=== PATIENT | female | born 1995 | race Hispanic/Latino ===

== ENCOUNTER 2016-12-20 10:22 | Emergency (ER) | payer SELFPAY ==
[2016-12-20 10:40] VITALS: BP 105/72; PULSE 112; RESP 18; TEMP 98.7; O2SAT 100
[2016-12-20] MEDS ORDERED: Sodium Chloride 0.9% 1,000 ML IV ONE (11:30)
[2016-12-20 11:35] LABS: RBC URINE 27 /hpf (0-3); URINE BACTERIA RARE (<OCC); URINE BILIRUBIN NEGATIVE (NEGATIVE); URINE BLOOD 2+ (NEGATIVE); URINE COLOR Yellow (YELLOW); URINE GLUCOSE (UA) NORMAL (Normal); URINE KETONE NEGATIVE (NEGATIVE); URINE LEUKOCYTE ESTERASE NEG Leu/uL (Negative); URINE PROTEIN NEGATIVE (NEGATIVE); URINE UROBILINOGEN NORMAL mg/dL (0.2-1.0); WBC URINE 2 /hpf (0-5)
[2016-12-20] MEDS ORDERED: Sodium Chloride 0.9% 1,000 ML ONE (11:54)
[2016-12-20 11:56] LABS: BASO % 0.2 % (0.0-2.0); EOS % 0.1 % (0.0-4.0); LYMPH # 0.8 K/uL (1.0-4.3); LYMPH % 7.3 % (20.0-40.0); MEAN CORPUSCULAR HEMOGLOBIN 29.3 pg (27.0-31.0); MEAN CORPUSCULAR HGB CONC 33.6 g/dL (33.0-37.0); MEAN PLATELET VOLUME 8.1 fL (7.2-11.7); MONO # 0.7 K/uL (0.0-0.8); MONO % 6.5 % (0.0-10.0); PLATELET COUNT 225 K/uL (130-400); RED CELL DISTRIBUTION WIDTH 13.2 % (11.5-14.5); WHITE BLOOD COUNT 10.6 K/uL (4.8-10.8)
[2016-12-20 12:11] LABS: NEUTROPHIL 88 % (50-75); TOTAL CELLS COUNTED 100
[2016-12-20 12:18] LABS: CHLORIDE 99 mmol/L (98-107); SODIUM 139 mmol/L (132-148)
[2016-12-20 12:20] LABS: GFR AFRICAN-AMERICAN > 60
[2016-12-20 12:21] LABS: ALB/GLOB RATIO 1.1 (1.0-2.1); ALKALINE PHOSPHATASE 66 U/L (38-126); ALT/SGPT 34 U/L (9-52); AST/SGOT 20 U/L (14-36); BILIRUBIN,TOTAL 0.8 mg/dL (0.2-1.3); BLOOD UREA NITROGEN 12 mg/dL (7-17); CALCIUM 8.6 mg/dl (8.6-10.4); CARBON DIOXIDE 23 mmol/L (22-30); GLUCOSE,RANDOM 100 mg/dL (65-105); TOTAL PROTEIN 7.9 g/dL (6.3-8.3)
--- NOTE | 2016-12-20 12:46 | C.PDOC ---
History Of Present Illness Patient is a 21 year old female presents to ED for evaluation of diffuse abdominal pain associated with nausea and diarrhea since early this morning. Patient states she feels "full", and feels as if she is dehydrated. States that she suffers from constipation, notes having bowel movement once a week. However , patient states she has diarrhea today. Otherwise, denies any urinary symptoms , fever, chills, vomiting, back pain, or any other associated symptoms at this time. LMP: 11/22/16. Time Seen by Provider: 12/20/16 11:00 Chief Complaint (Nursing): Abdominal Pain History Per: Patient History/Exam Limitations: no limitations Onset/Duration Of Symptoms: Hrs, Sudden Onset Current Symptoms Are (Timing): Still Present Severity: Moderate Location Of Pain/Discomfort: Diffuse Radiation Of Pain To:: None Associated Symptoms: Nausea, Diarrhea. denies: Fever, Chills, Vomiting, Loss Of Appetite, Back Pain, Chest Pain, Urinary Symptoms Exacerbating Factors: None Alleviating Factors: None Last Bowel Movement: Today Recent travel outside of the [place]: No Additional History Per: Patient Abnormal Vaginal Bleeding: No Last Menstral Period: 11/22/16 Past Medical History Reviewed: Historical Data, Nursing Documentation, Vital Signs Vital Signs: Last Vital Signs Temp 98.7 F 12/20/16 10:37 Pulse 112 H 12/20/16 10:37 Resp 18 12/20/16 10:37 BP 105/72 12/20/16 10:37 Pulse Ox 100 12/20/16 13:32 Family History: States: Unknown Family Hx - Social History Hx Tobacco Use: No Hx Alcohol Use: No Hx Substance Use: No - Immunization History Hx Influenza Vaccination: No Hx Pneumococcal Vaccination: No Review Of Systems Except As Marked, All Systems Reviewed And Found Negative. Constitutional: Negative for: Fever, Chills Gastrointestinal: Positive for: Nausea, Abdominal Pain, Diarrhea. Negative for : Vomiting, Melena, Hematochezia Genitourinary: Negative for: Dysuria, Frequency, Incontinence, Hematuria Musculoskeletal: Negative for: Back Pain Physical Exam - Physical Exam Appears: Non-toxic, No Acute Distress Skin: Warm, Dry Head: Atraumatic, Normacephalic Eye(s): bilateral: Normal Inspection, EOMI Nose: Normal Oral Mucosa: Moist Neck: Normal ROM, Supple Chest: Symmetrical Cardiovascular: Rhythm Regular, No Murmur Respiratory: Normal Breath Sounds, No Rales, No Rhonchi, No Wheezing Gastrointestinal/Abdominal: Bowel Sounds (active), Soft, No Tenderness, No Distention, No Guarding, No Rebound, No Other (negative McBurney point tenderness) Back: Normal Inspection, No CVA Tenderness Extremity: Bilateral: Atraumatic, Normal Color And Temperature, Normal ROM Neurological/Psych: Oriented x3, Normal Speech Gait: Steady ED Course And Treatment - Laboratory Results Result Diagrams: 12/20/16 11:52 12/20/16 11:52 Lab Interpretation: No Acute Changes O2 Sat by Pulse Oximetry: 100 (RA) Pulse Ox Interpretation: Normal - Other Rad Obstructive series x-ray X-Ray: Viewed By Me, Read By Radiologist Interpretation: FINDINGS: CHEST: Lungs: Clear. Cardiovascular: Normal size heart. No pulmonary vascular congestion. Pleura: No pleural fluid. No pneumothorax. Other findings: None. ABDOMEN AND PELVIS: Bowel: Unremarkable bowel gas pattern. No evidence of mechanical obstruction. Free air: None. Bones: Unremarkable. Other findings: None. IMPRESSION: Unremarkable radiographs of chest and abdomen. No evidence of mechanical bowel obstruction. Medical Decision Making Medical Decision Making: Impression: 21 y/o female presents with diffuse abdominal pain with nausea, and diarrhea. Plan: * Obstructive series x-ray * Blood work * UA * IV fluids, Pepcid, Zofran * Reassess and disposition Progress note: Lab reviewed showing no leukocytosis or electrolyte abnormality. XRay showed no evidence of mechanical bowel obstruction. On re-evaluation, patient reports feeling better, reports improvement of pain. She has no fever or signs of dehydration. Abdomen remains soft. Patient is being discharged home and is instructed to follow up with PMD in 1-2 days for further evaluation. Disposition Counseled Patient/Family Regarding: Diagnosis, Need For Followup, Rx Given - Disposition Referrals: Deysi Henry MD [Non-Staff] - Disposition: HOME/ ROUTINE Disposition Time: 12:46 Condition: IMPROVED Additional Instructions: You were evaluated for abdominal pain and diarrhea. Studies performed today showed no bacterial infection or surgical cause. Please take the medications prescribed to you for pain and symptoms. Drink fluids and rest. Follow up with your doctor in few days for further care. Return to to the emergency department at any time if symptoms persist or worsen. Prescriptions: Dicyclomine [Dicyclomine HCl] 10 mg PO QID #20 cap Docusate [Colace] 100 mg PO DAILY #30 cap Instructions: Acute Diarrhea (ED), Acute Abdominal Pain (DC) Forms: [facility] (Spanish), Work Excuse Print Language: OMANI - POA Present On Arrival: None - Clinical Impression Clinical Impression: Abdominal pain, Diarrhea - PA / MELTER ASSISTANT / Resident Statement MD/DO has reviewed & agrees with the documentation as recorded. - Scribe Statement The provider has reviewed the documentation as recorded by the Scribe Lelia Marin All medical record entries made by the Inderibpiter were at my direction and personally dictated by me. I have reviewed the chart and agree that the record accurately reflects my personal performance of the history, physical exam, medical decision making, and the department course for this patient. I have also personally directed, reviewed, and agree with the discharge instructions and disposition.
--- NOTE | 2016-12-20 13:20 | RAD ---
PROCEDURE: Radiographs of the chest and abdomen (obstructive series) HISTORY: abd pain COMPARISON: Abdomen pelvis CT without contrast 10/09/2013. TECHNIQUE: AP radiograph of the chest, with upright and supine radiographs of the abdomen. FINDINGS: CHEST: Lungs: Clear. Cardiovascular: Normal size heart. No pulmonary vascular congestion. Pleura: No pleural fluid. No pneumothorax. Other findings: None. ABDOMEN AND PELVIS: Bowel: Unremarkable bowel gas pattern. No evidence of mechanical obstruction. Free air: None. Bones: Unremarkable. Other findings: None. IMPRESSION: Unremarkable radiographs of chest and abdomen. No evidence of mechanical bowel obstruction.
== END 2016-12-20 13:13 | disposition home or self-care (01) ==
LOC: C.ER 10:22
DX: R10.9 Unspecified abdominal pain (principal); R19.7 Diarrhea, unspecified
CPT/HCPCS: 74022; 80053; 81001; 83690; 84703; 85025; 96361; 96374; 99283; J7040